=== PATIENT | male | born 1950 | race Caucasian/White ===

== ENCOUNTER 2019-09-10 | Emergency (ER) | payer MEDICARE, MEDICAID ==
[~2019-09-10] MED LIST: ATROVENT I0.5 MG/VIA IN; CARISOPRODOL350 MG PO; DIAZEPAM5 MG PO; HYDROCO/APAP1 T10 PO; LISINOPRIL20 MG PO; MIRALAX3350 NF PO; MOTRIN200 MG PO; OXYCODONE HCL15 MG PO; PEPCID20 MG PO; SINGULAIR10 MG PO; TGT OMEPRAZ20 MG PO; TRAZODONE50 MG PO; WELLBUTRIN SR150 MG PO
== END 2019-09-10 18:00 | disposition home or self-care (01) ==
DX: M17.11 Unilateral primary osteoarthritis, right knee (principal); J44.9 Chronic obstructive pulmonary disease, unspecified; I10 Essential (primary) hypertension; F17.200 Nicotine dependence, unspecified, uncomplicated

== ENCOUNTER 2022-04-05 19:30 | Emergency (ER) | payer OTHER, MEDICARE ==
[~2022-04-05] VITALS: Ht 182.9 cm; Wt 75.0 kg
[2022-04-05 20:20] VITALS: BP 173/111
== END 2022-04-05 20:21 | DRG 313 ==
LOC: ED 19:30
DX: R07.9 Chest pain, unspecified (principal); I10 Essential (primary) hypertension; J44.9 Chronic obstructive pulmonary disease, unspecified; F17.200 Nicotine dependence, unspecified, uncomplicated